=== PATIENT | male | born 1980 | race Caucasian/White ===

== ENCOUNTER 2017-10-25 22:38 | Emergency (ER) | payer BC ==
[~2017-10-25 22:38] MED LIST: DEXL30CA5 PO; ESOM20CA31 PO; LOR5/325 PO; METH-543 PO; PANT40TA65 PO; PARO-243 PO; RANI300C8 PO; SERT-173 PO; SUCR1TAB85 PO
--- NOTE | 2017-10-25 22:40 | ER Report ---
History and Physical Time Seen By MD: 22:39 HPI/ROS CHIEF COMPLAINT: Upper extremity distal paresthesias, tingling sensation, dizziness, weakness HISTORY OF PRESENT ILLNESS: Patient is a 36-year-old male here with complaints of bilateral upper extremity tingling in the distal extremities which has been present for the past 2 weeks approximately. Patient also complains of mild dizziness, red blotches on his hands. Patient reports that he took a nap and woke up with bilateral upper extremity tingling which prompted evaluation. Patient denies medical history aside from peptic ulcer which he is taking a PPI. Patient is afebrile, hemodynamically stable and in no acute distress. Denies headache, blurred vision, nausea, vomiting, shortness of breath, significant abdominal pains, difficulty urinating or hematuria or melena. REVIEW OF SYSTEMS: Constitutional: No fever, no chills. Eyes: No discharge. ENT: No sore throat. Cardiovascular: + mild vague chest pain, no palpitations. Respiratory: No cough, no shortness of breath. Gastrointestinal: + mild vague abdominal pain, no vomiting, no nausea Genitourinary: No hematuria. Musculoskeletal: No back pain. Skin: + hand blotching rashes. Neurological: No headache, + tingling sensation of b/l upper extremities, NV exam intact on physical exam Allergies: Coded Allergies: No Known Drug Allergies (Unverified , 01/20/17) Home Meds Active Scripts Pantoprazole Sodium (PANTOPRAZOLE SODIUM) 40 Mg Tablet.dr, 40 MG PO QDAY, #60 TAB.SR 6 Refills Prov:RON PARKER MD 09/19/17 Reported Medications Fluoxetine Hcl (FLUOXETINE HCL) 20 Mg Capsule, 20 MG PO QDAY, CAPSULE 10/25/17 Discontinued Reported Medications Paroxetine Hcl (PAXIL) 20 Mg Tablet, 20 MG PO QDAY 09/25/13 Discontinued Scripts Methocarbamol (ROBAXIN-750) 750 Mg Tablet, 1500 MG PO TID for m, #15 TAB 0 Refills Prov:MAURICE ZHENG MD 01/20/17 Hydrocodone Bit/Acetaminophen (HYDROCODON-ACETAMINOPHEN 5-325) 1 Each Tablet, 1 EACH PO Q4-6H PRN for PAIN, #12 TAB 0 Refills TAKE ONE TABLET BY MOUTH EVERY 4-6 HOURS NEEDED FOR PAIN Prov:MAURICE ZHENG MD 01/20/17 Hx Smoking: No Smoking Status: Never Smoker Hx Substance Use Disorder: No Hx Alcohol Use: No Constitutional Vital Sign - Last 24 Hours 10/25/17 22:46 Temp 98.3 Pulse 71 Resp 17 B/P (MAP) 145/105 Pulse Ox 99 O2 Delivery Room Air Physical Exam General Appearance: [The patient is alert, has no immediate need for airway protection and no signs of toxicity.] [ ] [Eyes:] [Pupils equal and round no pallor or injection.] [ENT, Mouth:] [Mucous membranes are moist.] Respiratory: [There are no retractions, lungs are clear to auscultation.] Cardiovascular: [Regular rate and rhythm.] [ ] Gastrointestinal: [Abdomen is soft and non tender, no masses, bowel sounds normal.] [Neurological:] [ ] [Skin:] [Warm and dry, no rashes.] [Musculoskeletal:] [Neck is supple non tender.] [Extremities are nontender, nonswollen and have full range of motion.] [ ] [DIFFERENTIAL DIAGNOSIS: After history and physical exam differential diagnosis was considered for] [ ] Medical Decision Making Data Points Result Diagram: 10/25/17230210/25/17 230 Laboratory Hematology Test 10/25/17 00:00 10/25/17 23:03 Urine Color Yellow Urine Clarity Clear Urine pH 7.0 pH (4.8-9.5) Urine Specific [place] 1.015 Urine Protein Negative mg/dL (NEGATIVE) Urine Glucose (UA) Negative mg/dL (NEGATIVE) Urine Ketones Negative mg/dL (NEGATIVE) Urine Blood Negative (NEGATIVE) Urine Nitrite Negative (NEGATIVE) Urine Bilirubin Negative (NEGATIVE) Urine Urobilinogen Negative mg/dL (0.2-1.9) Urine Leukocyte Esterase Negative (NEGATIVE) Urine RBC None /HPF (0-2/HPF) Urine WBC <1 /HPF (0-5/HPF) Urine Squamous Epithelial Cells None /LPF (</=FEW) Urine Bacteria Negative /HPF (NONE-FEW) Urine Mucus None /HPF (NONE-FEW) Red Blood Count 5.54 M/uL (4.00-5.60) Mean Corpuscular Volume 84.5 fL (80.0-96.0) Mean Corpuscular Hemoglobin 30.1 pg (26.0-33.0) Mean Corpuscular Hemoglobin Concent 35.6 g/dL (32.0-36.0) Red Cell Distribution Width 13.5 % (11.5-14.5) Mean Platelet Volume 9.7 fL (7.2-11.1) Neutrophils (%) (Auto) 61.3 % (39.4-72.5) Lymphocytes (%) (Auto) 28.9 % (17.6-49.6) Monocytes (%) (Auto) 7.7 % (4.1-12.4) Eosinophils (%) (Auto) 1.4 % (0.4-6.7) Basophils (%) (Auto) 0.7 % (0.3-1.4) Nucleated RBC Relative Count (auto) 0.1 /100WBC Neutrophils # (Auto) 3.2 K/uL (2.0-7.4) Lymphocytes # (Auto) 1.5 K/uL (1.3-3.6) Monocytes # (Auto) 0.4 K/uL (0.3-1.0) Eosinophils # (Auto) 0.1 K/uL (0.0-0.5) Basophils # (Auto) 0.0 K/uL (0.0-0.1) Nucleated RBC Absolute Count (auto) 0.00 K/uL Sodium Level 142 mmol/L (137-145) Potassium Level 3.9 mmol/L (3.5-5.0) Chloride Level 101 mmol/L (98-107) Carbon Dioxide Level 30 mmol/L (22-30) Blood Urea Nitrogen 10 mg/dl (9-21) Creatinine 1.00 mg/dl (0.66-1.25) Glomerular Filtration Rate Calc > 60.0 Random Glucose 107 mg/dl (75-110) Calcium Level 9.5 mg/dl (8.4-10.2) Magnesium Level 2.0 mg/dl (1.7-2.2) Total Bilirubin 0.3 mg/dl (0.2-1.3) Aspartate Amino Transf (AST/SGOT) 21 U/L (0-35) Alanine Aminotransferase (ALT/SGPT) 25 U/L (0-56) Alkaline Phosphatase 39 U/L (0-126) Total Protein 7.4 g/dl (6.3-8.2) Albumin 4.2 g/dl (3.5-5.0) Lipase 302 U/L (23-300) Chemistry Test 10/25/17 00:00 10/25/17 23:03 Urine Color Yellow Urine Clarity Clear Urine pH 7.0 pH (4.8-9.5) Urine Specific [place] 1.015 Urine Protein Negative mg/dL (NEGATIVE) Urine Glucose (UA) Negative mg/dL (NEGATIVE) Urine Ketones Negative mg/dL (NEGATIVE) Urine Blood Negative (NEGATIVE) Urine Nitrite Negative (NEGATIVE) Urine Bilirubin Negative (NEGATIVE) Urine Urobilinogen Negative mg/dL (0.2-1.9) Urine Leukocyte Esterase Negative (NEGATIVE) Urine RBC None /HPF (0-2/HPF) Urine WBC <1 /HPF (0-5/HPF) Urine Squamous Epithelial Cells None /LPF (</=FEW) Urine Bacteria Negative /HPF (NONE-FEW) Urine Mucus None /HPF (NONE-FEW) White Blood Count 5.3 k/uL (4.5-11.0) Red Blood Count 5.54 M/uL (4.00-5.60) Hemoglobin 16.6 g/dL (14.0-18.0) Hematocrit 46.8 % (42.0-52.0) Mean Corpuscular Volume 84.5 fL (80.0-96.0) Mean Corpuscular Hemoglobin 30.1 pg (26.0-33.0) Mean Corpuscular Hemoglobin Concent 35.6 g/dL (32.0-36.0) Red Cell Distribution Width 13.5 % (11.5-14.5) Platelet Count 174 K/uL (150-450) Mean Platelet Volume 9.7 fL (7.2-11.1) Neutrophils (%) (Auto) 61.3 % (39.4-72.5) Lymphocytes (%) (Auto) 28.9 % (17.6-49.6) Monocytes (%) (Auto) 7.7 % (4.1-12.4) Eosinophils (%) (Auto) 1.4 % (0.4-6.7) Basophils (%) (Auto) 0.7 % (0.3-1.4) Nucleated RBC Relative Count (auto) 0.1 /100WBC Neutrophils # (Auto) 3.2 K/uL (2.0-7.4) Lymphocytes # (Auto) 1.5 K/uL (1.3-3.6) Monocytes # (Auto) 0.4 K/uL (0.3-1.0) Eosinophils # (Auto) 0.1 K/uL (0.0-0.5) Basophils # (Auto) 0.0 K/uL (0.0-0.1) Nucleated RBC Absolute Count (auto) 0.00 K/uL Glomerular Filtration Rate Calc > 60.0 Calcium Level 9.5 mg/dl (8.4-10.2) Magnesium Level 2.0 mg/dl (1.7-2.2) Total Bilirubin 0.3 mg/dl (0.2-1.3) Aspartate Amino Transf (AST/SGOT) 21 U/L (0-35) Alanine Aminotransferase (ALT/SGPT) 25 U/L (0-56) Alkaline Phosphatase 39 U/L (0-126) Total Protein 7.4 g/dl (6.3-8.2) Albumin 4.2 g/dl (3.5-5.0) Lipase 302 U/L (23-300) Urinalysis Test 10/25/17 00:00 Urine Color Yellow Urine Clarity Clear Urine pH 7.0 pH (4.8-9.5) Urine Specific [place] 1.015 Urine Protein Negative mg/dL (NEGATIVE) Urine Glucose (UA) Negative mg/dL (NEGATIVE) Urine Ketones Negative mg/dL (NEGATIVE) Urine Blood Negative (NEGATIVE) Urine Nitrite Negative (NEGATIVE) Urine Bilirubin Negative (NEGATIVE) Urine Urobilinogen Negative mg/dL (0.2-1.9) Urine Leukocyte Esterase Negative (NEGATIVE) Urine RBC None /HPF (0-2/HPF) Urine WBC <1 /HPF (0-5/HPF) Urine Squamous Epithelial Cells None /LPF (</=FEW) Urine Bacteria Negative /HPF (NONE-FEW) Urine Mucus None /HPF (NONE-FEW) EKG/Imaging EKG Interpretation 12 lead EKG: Normal sinus rhythm, rate 68, QTC 399, no ischemic changes or arrhythmias Rhythm: normal sinus rhythm [place]: normal QRS: normal ST segments: normal Monitor Interpretation: Normal Sinus Rhythm ED Course/Re-evaluation ED Course Patient is a 36-year-old male here with complaints of bilateral upper extremity paresthesias or tingling sensation in the hands, blotchy rash on the dorsum of the hands, dizziness. Patient reports that in his upper extremity tingling sensation got worse after he woke up from a nap making structural causes of up per extremity paresthesias such as thoracic outlet syndrome more likely. Electrolytes were found to be normal, EKG showed no arrhythmias. CBC was unremarkable. TSH was ordered and was pending, to be followed up by the patient and the patient's PCP when he visits for his appointment in the upcoming week. I mentioned to the patient that his lipase was elevated which was isolated without transaminitis, elevated bilirubin or alk phosphatase. Patient had no abdominal tenderness on exam and denied alcohol use making this likely an incidental finding. Patient agreed to follow-up with his PCP as scheduled and to return promptly if you develop worsening symptoms. Patient remained afebrile, hemodynamically stable throughout course. Decision to Disposition Date: Oct 26, 2017 Decision to Disposition Time: 00:00 Depart Departure Latest Vital Signs Vital Signs Date Time Temp Pulse Resp B/P (MAP) Pulse Ox O2 Delivery O2 Flow Rate FiO2 10/25/17 22:46 98.3 71 17 145/105 99 Room Air Impression: Primary Impression: Paresthesia of both hands Additional Impression: Dizziness Condition: Improved Disposition: HOME OR SELF-CARE Referrals: RON CHOW MD (PCP) Patient Instructions: Dizziness (ED), Paresthesia (ED) Additional Instructions: Please follow-up with your family doctor in the next several days for follow-up evaluation and review of todays labs. You may consider applying heat packs to her neck and neck muscles, sleeping on different support pillow to see if your upper extremity tingling sensation goes way. Please return promptly if your symptoms worsen or fail to improve. Problem Qualifiers JENNIFER RODRIGUEZ DO Oct 25, 2017 22:40
[2017-10-25] MEDS ORDERED: FLUO-177 PO (22:54)
[2017-10-25 23:21] LABS: PLATELET COUNT, AUTOMATED 174 K/uL (150-450)
[2017-10-25 23:30] VITALS: BP 134/83
--- NOTE | 2017-10-25 23:43 | EKG ---
FACILITY: [facility] PATIENT NAME: THAI ROSALES : [id number] MR: [id number] V: [id number] EXAM DATE: ORDERING PHYSICIAN: JENNIFER RODRIGUEZ TECHNOLOGIST: MICHELLE Test Reason : DIZZINESS Blood Pressure : / mmHG Vent. Rate : 068 BPM Atrial Rate : 068 BPM P-R Int : 138 ms QRS Dur : 084 ms QT Int : 376 ms P-R-T Axes : 067 085 082 degrees QTc Int : 399 ms Sinus rhythm Possible left atrial enlargement Nonspecific ST findings No previous ECGs available Confirmed by MOUSTAPHA ERNST ([id number]) on 10/26/2017 6:22:51 AM Referred By: Confirmed By:MOUSTAPHA ERNST
== END 2017-10-26 00:04 | disposition home or self-care (01) ==
LOC: ER 23:09
DX: R20.2 Paresthesia of skin (principal); R42 Dizziness and giddiness
CPT/HCPCS: 36415; 81001; 82040; 82247; 82310; 82374; 82435; 82565; 82947; 83690; 83735; 84075; 84132; 84155; 84295; 84443; 84450; 84460; 84520; 85025; 93005; 99283